=== PATIENT | female | born 1955 | race Caucasian/White ===

== ENCOUNTER 2016-10-15 12:59 | Emergency (ER) | payer OTHER ==
[~2016-10-15] VITALS: Ht 157.5 cm; Wt 69.0 kg
[~2016-10-15 12:59] MED LIST: ACYC200C PO; ATOR40TA28 PO; BUME1TAB30 PO; DOCU250C91 PO; DULO60CA44 PO; HYDR-309 PO; INSU3INS5 SQ; KDUR10 PO; LISI-660 PO; METF500T4 PO; NIFE60TA71 PO; OXYC10 PO; PREG75 PO; RIVA20TA PO; TRAM50TA4 PO
[2016-10-15 13:11] LABS: GLUCOSE,POINT OF CARE 340 MG/DL (70-110)
[2016-10-15] MEDS ORDERED: KETOROLAC TROMETHAMINE 60 MG/2 ML VIAL IM ONE (18:00)
[2016-10-15] MEDS ORDERED: TraMADol HCL 50 MG TABLET PO ONE (18:00)
[2016-10-15] MEDS ORDERED: METHOCARBAMOL 500 MG TABLET PO ONE (18:00)
[2016-10-15 20:13] VITALS: BP 158/87
[2016-10-15] MEDS ORDERED: MetFORMIN HCL 500 MG TABLET PO ONE (21:15)
== END 2016-10-15 21:22 | disposition home or self-care (01) ==
LOC: EMS 13:00
DX: S16.1XXA Strain of muscle, fascia and tendon at neck level, initial encounter (principal); S20.212A Contusion of left front wall of thorax, initial encounter; E11.9 Type 2 diabetes mellitus without complications; I10 Essential (primary) hypertension; E78.00 Pure hypercholesterolemia, unspecified; F17.210 Nicotine dependence, cigarettes, uncomplicated; Z88.8 Allergy status to other drugs, medicaments and biological substances; W05.0XXA Fall from non-moving wheelchair, initial encounter; Y93.89 Activity, other specified; Y92.89 Other specified places as the place of occurrence of the external cause; Y99.8 Other external cause status
CPT/HCPCS: 71101; 72040; 82962; 96372; 99284; J1885

== ENCOUNTER 2017-02-10 23:26 | Emergency (ER) | payer OTHER ==
[~2017-02-10] VITALS: Ht 157.5 cm; Wt 73.0 kg
[2017-02-10 23:42] LABS: GLUCOSE,POINT OF CARE 306 MG/DL (70-110)
[2017-02-11] MEDS ORDERED: KETOROLAC TROMETHAMINE 30 MG/ML VIAL IVP ONE (00:30)
[2017-02-11] MEDS ORDERED: HYDROmorphone 2 MG/ML SYRINGE IVP ONE (00:30)
[2017-02-11] MEDS ORDERED: ONDANSETRON HCL 4 MG/2 ML VIAL IVP ONE (00:30)
[2017-02-11 01:06] LABS: HEMATOCRIT 36.9 % (36-46); MEAN CORPUSCULAR HEMOGLOBIN 27.5 pg (26.0-34.0); MEAN CORPUSCULAR HGB CONC 32.6 G/dL (31.0-37.0); MEAN CORPUSCULAR VOLUME 84 fL (80-100); PLATELET COUNT (AUTO) 315 K/uL (150-450); RED BLOOD CELL COUNT(AUTO) 4.38 MIL/uL (4.00-5.20); RED CELL DISTRIBUTION WIDTH 15.8 % (11.5-14.5); WHITE BLOOD COUNT (AUTO) 12.7 K/uL (4.5-11.0)
[2017-02-11 01:16] LABS: CALCIUM, TOTAL 8.4 mg/dL (8.8-10.5); CREATININE 1.06 mg/dL (0.60-1.30); POTASSIUM 4.1 mmol/L (3.5-5.1)
[2017-02-11 01:26] LABS: BILIRUBIN,TOTAL 0.2 mg/dL (0.1-1.0); TOTAL PROTEIN, SERUM 6.9 g/dL (6.4-8.2)
[2017-02-11 01:38] LABS: EOSINOPHILS % (MANUAL) 15 % (1-6); LYMPHOCYTES % (MANUAL) 19 % (22-44); TOTAL CELLS COUNTED 100
[2017-02-11 01:39] LABS: RBC MORPHOLOGY COMMENT NORMAL RBC MORPH
[2017-02-11 03:46] VITALS: BP 119/72
== END 2017-02-11 03:47 | disposition home or self-care (01) ==
LOC: EMS 23:29
DX: S13.4XXA Sprain of ligaments of cervical spine, initial encounter (principal); M54.6 Pain in thoracic spine; E11.65 Type 2 diabetes mellitus with hyperglycemia; F17.210 Nicotine dependence, cigarettes, uncomplicated; I10 Essential (primary) hypertension; E78.00 Pure hypercholesterolemia, unspecified; Z88.1 Allergy status to other antibiotic agents; Z79.4 Long term (current) use of insulin; Z79.01 Long term (current) use of anticoagulants; X58.XXXA Exposure to other specified factors, initial encounter; Y93.89 Activity, other specified; Y99.8 Other external cause status; Y92.89 Other specified places as the place of occurrence of the external cause
CPT/HCPCS: 36415; 72050; 72070; 80053; 82962; 84484; 85025; 93005; 96374; 96375; 99285; 99406; J1170; J1885; J2405